=== PATIENT | male | born 1985 | race Caucasian/White ===

== ENCOUNTER 2017-02-06 13:54 | Emergency (ER) | payer MEDICAID, OTHER ==
[2017-02-06 14:24] VITALS: BP 140/90
--- NOTE | 2017-02-06 14:34 | EDM.PDOC ---
ED HPI GENERAL MEDICAL PROBLEM - General Chief Complaint: Upper Extremity Injury/Pain Stated Complaint: RIGHT WRIST INJURY Time Seen by Provider: 02/06/17 14:31 Source of Information: Reports: Patient History Limitations: Reports: No Limitations - History of Present Illness INITIAL COMMENTS - FREE TEXT/NARRATIVE: 31-year-old male arrives in the ED for evaluation of right wrist injury. This occurred when he was jumping off playground equipment and landed wrong falling on outstretched right hand. He said previous trauma to the right forearm and hand from a crush injury and has had numerous tendon and muscle transplants. He can nearly make a full fist but pain is primarily at the distal radius. He is right hand dominant. No open wounds are evident. No other injuries occurred. Onset: Today Onset Date: 02/06/17 Onset Time: 14:00 Duration: Minutes: Location: Reports: Upper Extremity, Right (Right wrist.) Quality: Reports: Ache, Throbbing Severity: Moderate Improves with: Reports: None Worsens with: Reports: Movement Context: Reports: Activity. 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) Right Wrist Pain Score (Numeric/FACES): 6 - Related Data Allergies Allergy/AdvReac Type Severity Reaction Status Date / Time hydromorphone Allergy Respiratory Verified 02/06/17 14:24 Distress Home Meds: Home Meds Cholecalciferol (Vitamin D3) [Vitamin D] 5,000 unit PO DAILY 04/06/15 [History] atorvaSTATin [Lipitor] 20 mg PO BEDTIME 04/06/15 [History] Past Medical History HEENT History: Reports: None Cardiovascular History: Reports: High Cholesterol Respiratory History: Reports: None Gastrointestinal History: Reports: None Genitourinary History: Reports: None Musculoskeletal History: Reports: Other (See Below) Other Musculoskeletal History: right arm crush injury Neurological History: Reports: None Psychiatric History: Reports: None Endocrine/Metabolic History: Reports: None Hematologic History: Reports: None Immunologic History: Reports: None Oncologic (Cancer) History: Reports: None Dermatologic History: Reports: None - Infectious Disease History Infectious Disease History: Reports: None - Past Surgical History Head Surgeries/Procedures: Reports: None Musculoskeletal Surgical History: Reports: Other (See Below) Other Musculoskeletal Surgeries/Procedures:: hand surgery Social & Family History - Family History Family Medical History: Noncontributory - Tobacco Use Smoking Status *Q: Never Smoker Second Hand Smoke Exposure: No - Caffeine Use Caffeine Use: Reports: None - Recreational Drug Use Recreational Drug Use: No - Living Situation & Occupation Living situation: Reports: Occupation: Employed Review of Systems - Review of Systems Review Of Systems: See Below Constitutional: Reports: No Symptoms Eyes: Reports: Foreign Body Sensation Ears: Reports: No Symptoms Nose: Reports: No Symptoms Mouth/Throat: Reports: No Symptoms Respiratory: Reports: No Symptoms Cardiovascular: Reports: No Symptoms GI/Abdominal: Reports: No Symptoms Genitourinary: Reports: No Symptoms Musculoskeletal: Reports: Other (Right hand dysfunction since crush trauma to the right hand and wrist occurred in work-related accident. Has had tendon transplants to make his thumb work better. 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 No: Lymphadenopathy (L), Lymphadenopathy (R) Respiratory/Chest: No Respiratory Distress, Lungs Clear, Normal Breath Sounds, No Accessory Muscle Use Extremities: Other (Has swelling pain localized to the distal right radius and wrist area. Can nearly make a full fist. There appears to be some mild swelling at the lateral aspect of the distal radius.) Neurological: Alert, Oriented, CN II-XII Intact, Normal Cognition, Normal Gait Psychiatric: Normal Affect, Normal Mood Skin Exam: Warm, Dry, Intact, Normal Color, No Rash Course - Vital Signs Last Recorded V/S: Last Vital Signs Temp 37.1 C 02/06/17 14:20 Pulse 99 02/06/17 14:20 Resp 18 02/06/17 14:20 BP 140/90 02/06/17 14:20 Pulse Ox 98 02/06/17 14:20 - Orders/Labs/Meds Orders: Active Orders 24 hr Category Date Time Status Wrist Comp Min 3V Rt [CR] Stat Exams 02/06/17 14:30 Taken - Radiology Interpretation Free Text/Narrative:: 31-year-old male presents the ED with an acute injury to his right upper extremity from a fall. Landed on outstretched hand with acute pain in his right wrist primarily over the distal radius. Plan 3 views of the wrist are to be done. - Re-Assessments/Exams Free Text/Narrative Re-Assessment/Exam: 02/06/17 15:21 x-rays of the right wrist do not reveal any fractures. Placed an tomi wrap. He will leave this on during the day and off at night for the next 3 days. Ice pack to the area one half hour of every 4 hours today and tomorrow. Motrin 6 mg of 6 hours needed for pain relief. Departure - Departure Time of Disposition: 15:21 Disposition: Home, Self-Care 01 Condition: Fair Clinical Impression: Sprain of right wrist Qualifiers: Encounter type: initial encounter Qualified Code(s): S63.501A - Unspecified sprain of right wrist, initial encounter - Discharge Information Referrals: PCP,None [Primary Care Provider] - Forms: ED Department Discharge Additional Instructions: Fall on outstretched hand with acute injury to the right wrist. Please do not reveal any fractures of the carpal bones which are 8 pounds within the true wrist joint or in the distal forearm bones. 4. Cyst injury has been mostly ligamentous and sprain to the joint. Expect things to worse before they get better particularly tomorrow morning may be more painful with limited range of motion. Suggest Tomi wrap on during the day and off at night for the next 3 days. Ice pack to the area one half hour out of every 4 hours today and tomorrow. Motrin 600 mg every 6 hours needed for pain relief. Follow-up if not completely back to normal in 10 days' time. - My Orders Last 24 Hours: My Active Orders 02/06/17 14:30 Wrist Comp Min 3V Rt [CR] Stat - Assessment/Plan Last 24 Hours: My Active Orders 02/06/17 14:30 Wrist Comp Min 3V Rt [CR] Stat
--- NOTE | 2017-02-07 08:41 | CR ---
Right wrist: Four views of the right wrist were obtained. Comparison: Previous right wrist study of 04/06/15. Joint spaces are maintained. No acute fracture, dislocation or other bony abnormality is seen. Impression: 1. No abnormality is identified on four-view right wrist exam. Diagnostic code #1
== END 2017-02-06 15:45 | disposition home or self-care (01) ==
LOC: JD.ED 13:54
DX: S63.501A Unspecified sprain of right wrist, initial encounter (principal); E78.00 Pure hypercholesterolemia, unspecified; Z98.890 Other specified postprocedural states; Z88.5 Allergy status to narcotic agent; W09.8XXA Fall on or from other playground equipment, initial encounter; Y92.89 Other specified places as the place of occurrence of the external cause
CPT/HCPCS: 73110-26-RT; 73110-RT; 99283

== ENCOUNTER 2017-12-27 20:30 | Emergency (ER) | payer MEDICAID, OTHER ==
[2017-12-27 20:39] VITALS: BP 131/96
[2017-12-27] MEDS ORDERED: Ibuprofen 600 MG Tab PO ONE (23:03)
--- NOTE | 2017-12-27 23:03 | EDM.PDOC ---
ED HPI GENERAL MEDICAL PROBLEM - General Chief Complaint: ENT Problem Stated Complaint: CHIPPED TOOTH PAINFUL Time Seen by Provider: 12/27/17 22:06 Source of Information: Reports: Patient History Limitations: Reports: No Limitations - History of Present Illness INITIAL COMMENTS - FREE TEXT/NARRATIVE: The patient states that he chipped tooth #11 while eating at [facility]. He states that he did not bite into anything especially hard, just a regular [place]. He states that he has dental issues that include thin enamel, and that he is in the process of getting veneers and implants. He reports his pain about a 5 out of 10. He has not taken any medication for his pain thus far [facility]. No prior similar symptoms. The patient's PCP is in [place]. Right Tooth/Teeth Pain Score (Numeric/FACES): 5 - Related Data Allergies Allergy/AdvReac Type Severity Reaction Status Date / Time hydromorphone Allergy Respiratory Verified 02/06/17 14:24 Distress Home Meds: Home Meds Cholecalciferol (Vitamin D3) [Vitamin D] 5,000 unit PO DAILY 04/06/15 [History] atorvaSTATin [Lipitor] 20 mg PO BEDTIME 04/06/15 [History] Past Medical History Cardiovascular History: Reports: High Cholesterol Musculoskeletal History: Reports: Other (See Below) (Right forearm crush injury) - Past Surgical History Musculoskeletal Surgical History: Reports: Other (See Below) (Right forearm and hand repair) Social & Family History - Family History Family Medical History: Noncontributory - Tobacco Use Smoking Status *Q: Never Smoker Second Hand Smoke Exposure: No - Caffeine Use Caffeine Use: Reports: Soda - Alcohol Use Alcohol Use History: Yes Alcohol Use Frequency: Socially - Recreational Drug Use Recreational Drug Use: No - Living Situation & Occupation Living situation: Reports: , with Spouse, with Family (4 kids) 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 ED EXAM, ENT - Physical Exam Exam: See Below Exam Limited By: No Limitations General Appearance: Alert, WD/WN, No Apparent Distress Eye Exam: Bilateral Eye: Normal Inspection Ears: Normal External Exam, Hearing Grossly Normal Nose: Normal Inspection, No Blood Mouth/Throat: Other (Tooth #11 appears to have a piece missing off the posterior aspect. No apparent gingival injury.) Course - Vital Signs Last Recorded V/S: Last Vital Signs Temp 37.0 C 12/27/17 20:35 Pulse 103 H 12/27/17 20:35 Resp 18 12/27/17 20:35 BP 131/96 H 12/27/17 20:35 Pulse Ox 98 12/27/17 20:35 - Orders/Labs/Meds Meds: Medications Discontinued Medications Generic Name Dose Route Start Last Admin Trade Name Titi PRN Reason Stop Dose Admin Ibuprofen 600 mg 12/27/17 23:03 12/27/17 23:09 Motrin PO 12/27/17 23:04 600 mg ONETIME ONE Administration - Re-Assessments/Exams Free Text/Narrative Re-Assessment/Exam: 12/27/17 23:00 The patient appears to have chipped the posterior aspect of tooth #11. I'm recommending that he purchase an [id number]-[id number] temporary dental filling, then follow-up with his dentist at the next available appointment. I do not see an indication for an antibiotic at this point. Departure - Departure Time of Disposition: 23:00 Disposition: Home, Self-Care 01 Condition: Good Clinical Impression: Chipped tooth - Discharge Information Instructions: Tooth Injuries, [id number] Referrals: PCP,Not In Area [Primary Care Provider] - Forms: ED Department Discharge Additional Instructions: You were seen in the emergency room after chipping your tooth #11. We recommend you purchase an lkec-mto-aaxtoji temporary dental filling, such as Dentemp, Temptooth, or Dentek Temparin Max. One or more of these products may be available at [facility]. If not, one or more of these should be available at a pharmacy. Take care-qxa-diychad ibuprofen, 2-3 tablets (400-600 mg) every 8 hours, with food, as needed for tooth pain. Follow-up with your dentist at the next available appointment. If any other problems, please do not hesitate to return to the ER.
== END 2017-12-27 23:12 | disposition home or self-care (01) ==
LOC: JD.ED 20:30
DX: K03.81 Cracked tooth (principal); E78.00 Pure hypercholesterolemia, unspecified; Z88.5 Allergy status to narcotic agent; Z79.899 Other long term (current) drug therapy
CPT/HCPCS: 99283; A9270

== ENCOUNTER 2018-08-04 10:47 | Emergency (ER) | payer BC, MEDICAID ==
[2018-08-04 11:01] VITALS: BP 145/89
--- NOTE | 2018-08-04 11:29 | EDM.PDOC ---
ED HPI GENERAL MEDICAL PROBLEM - General Chief Complaint: Upper Extremity Injury/Pain Stated Complaint: RT WRIST INJURY Time Seen by Provider: 08/04/18 10:57 Source of Information: Reports: Patient, RN Notes Reviewed History Limitations: Reports: No Limitations - History of Present Illness INITIAL COMMENTS - FREE TEXT/NARRATIVE: Patient is a 33 year old male who presents to the ED for the evaluation of right wrist pain s/p fall. He states that he slipped on the ice around 1 hour ago and ended up landing with his right wrist hyperflexed. He notes that he has had previous injury to this wrist that resulted in surgery. He states that he is having a hard time moving his wrist, due to pain. He would rate his pain at a 6/10. This pain does not radiate to elbow or shoulder. He denies any numbness or tingling. He has not taken any medications for this, due to the injury happening just prior to arrival. Right Wrist Pain Score (Numeric/FACES): 6 - Related Data Allergies Allergy/AdvReac Type Severity Reaction Status Date / Time hydromorphone Allergy Respiratory Verified 08/04/18 11:01 Distress Home Meds: Home Meds Cholecalciferol (Vitamin D3) [Vitamin D] 5,000 unit PO DAILY 04/06/15 [History] atorvaSTATin [Lipitor] 20 mg PO BEDTIME 04/06/15 [History] Past Medical History HEENT History: Reports: None Cardiovascular History: Reports: High Cholesterol Respiratory History: Reports: None Gastrointestinal History: Reports: GERD Genitourinary History: Reports: None Musculoskeletal History: Reports: Other (See Below) Other Musculoskeletal History: Right hand surgery for a crush injury Neurological History: Reports: None Psychiatric History: Reports: None Endocrine/Metabolic History: Reports: None Hematologic History: Reports: None Immunologic History: Reports: None Oncologic (Cancer) History: Reports: None Dermatologic History: Reports: None - Infectious Disease History Infectious Disease History: Reports: None - Past Surgical History Head Surgeries/Procedures: Reports: None Social & Family History - Family History Family Medical History: Noncontributory - Tobacco Use Smoking Status *Q: Never Smoker - Caffeine Use Caffeine Use: Reports: Soda - Recreational Drug Use Recreational Drug Use: No - Living Situation & Occupation Living situation: Reports: , with Spouse, with Family (4 kids) 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 Denies: Joint Swelling, Muscle Pain, Muscle Stiffness Skin: Reports: No Symptoms Neurological: Reports: No Symptoms Psychiatric: Reports: No Symptoms ED EXAM, GENERAL - Physical Exam Exam: See Below Free Text/Narrative:: exam limited to right upper extremity Exam Limited By: No Limitations General Appearance: Alert, WD/WN, No Apparent Distress (pt does have ice pack on right wrist) Head: Atraumatic, Normocephalic Neck: Normal Inspection, Supple, Non-Tender, Full Range of Motion Respiratory/Chest: No Respiratory Distress, Lungs Clear, Normal Breath Sounds, No Accessory Muscle Use, Chest Non-Tender Cardiovascular: Normal Peripheral Pulses, Regular Rate, Rhythm, No Murmur Extremities: Normal Inspection, Normal Capillary Refill, Limited Range of Motion (of right wrist due to pain). No: Joint Swelling, Increased Warmth, Mottled, Pallor, Redness Neurological: Alert, Oriented, Normal Cognition, Normal Reflexes, No Motor/ Sensory Deficits Psychiatric: Normal Affect, Normal Mood Skin Exam: Warm, Dry, Intact, Normal Color, No Rash Course - Vital Signs Last Recorded V/S: Last Vital Signs Temp 96.3 F 08/04/18 10:56 Pulse 96 08/04/18 10:56 Resp 16 08/04/18 10:56 BP 145/89 H 08/04/18 10:56 Pulse Ox 97 08/04/18 10:56 - Re-Assessments/Exams Free Text/Narrative Re-Assessment/Exam: 08/04/18 11:32 Pt presents to the ED for right wrist pain. Wrist x-ray has been ordered for further evaluation. 30 mg IM toradol was offered for pain relief, but pt declined. 08/04/18 11:59 X-ray did not demonstrate any acute fracture or abnormality. He was tender in the anatomical snuffbox, have recommended possibility of getting another x-ray in a week or two if his pain persists in that area. The patient understands this. Departure - Departure Time of Disposition: 12:00 Disposition: Home, Self-Care 01 Condition: Fair Clinical Impression: Right wrist sprain Qualifiers: Encounter type: initial encounter Qualified Code(s): S63.501A - Unspecified sprain of right wrist, initial encounter - Discharge Information *PRESCRIPTION DRUG MONITORING PROGRAM REVIEWED*: No *COPY OF PRESCRIPTION DRUG MONITORING REPORT IN PATIENT LOYD: No Instructions: Wrist Sprain, Adult, Wrist Sprain Rehab-SportsMed Referrals: PCP,None [Primary Care Provider] - Forms: ED Department Discharge Additional Instructions: You have been evaluated in the ED for your right wrist pain. Your x-ray demonstrated no acute fracture or abnormality. You have been provided with a wrist splint. If you are still having pain in your wrist after a week or so, please return to clinic for imaging of the wrist again for the possibility of a scaphoid fracture. Sometimes these do not show up on acute injury x-rays. Please use 600mg ibuprofen/500mg tylenol every 6 hours as needed for pain relief. Please ice the area as tolerated. Please return to ED if your symptoms should change or worsen.
--- NOTE | 2018-08-04 11:50 | CR ---
Right wrist: Four views of the right wrist were obtained. Comparison: Prior right wrist study of 02/06/17. Findings: Joint spaces within the right wrist are preserved. No fracture, dislocation or other bony abnormality is seen. Impression: 1. No abnormality is appreciated on right wrist exam. No change is appreciated from previous wrist study. Diagnostic code #1
== END 2018-08-04 12:40 | disposition home or self-care (01) ==
LOC: JD.ED 10:47
DX: S63.501A Unspecified sprain of right wrist, initial encounter (principal); E78.00 Pure hypercholesterolemia, unspecified; Z88.5 Allergy status to narcotic agent; Z79.899 Other long term (current) drug therapy; W00.0XXA Fall on same level due to ice and snow, initial encounter
CPT/HCPCS: 73110-26-RT; 73110-RT; 99282; 99283

== ENCOUNTER 2019-10-13 09:05 | Emergency (ER) | payer BC, MEDICAID, OTHER ==
[2019-10-13 09:15] VITALS: BP 141/83; PULSE 88
--- NOTE | 2019-10-13 09:32 | EDM.PDOC ---
<Rusty Coombs - Last Filed: 10/13/19 09:34> ED HPI GENERAL MEDICAL PROBLEM - General Chief Complaint: ENT Problem Stated Complaint: DENTAL COMPLAINT Time Seen by Provider: 10/13/19 09:29 - History of Present Illness INITIAL COMMENTS - FREE TEXT/NARRATIVE: 34 y/o male pt presenting today with complaint of tooth pain over his 1st left lateral incisor. He reports he had a tooth abscess that drained Saturday and Saturday, but the tooth is still causing him significant pain and preventing him from eating and sleeping. He informs us that he does have an appointment with a dentist at [facility] tomorrow in [place], but that was the soonest he was able to get in. 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 He states that the tooth causes pain posteriorly across the left side of face back towards his jaw, but he does not have pain that radiates across the right. Beyond the tooth pain he denies any other pain or issues. - Related Data Allergies Allergy/AdvReac Type Severity Reaction Status Date / Time hydromorphone Allergy Respiratory Verified 10/13/19 09:15 Distress Home Meds: Home Meds Cholecalciferol (Vitamin D3) [Vitamin D] 5,000 unit PO DAILY 04/06/15 [History] traMADol [Ultram] 50 mg PO TID 05/31/19 [History] Acetaminophen/HYDROcodone [[place] 325-5 MG] 1 - 2 tab PO Q6H #12 tablet 10/13/19 [Rx] Clindamycin HCl 300 mg PO TID #21 capsule 10/13/19 [Rx] ED ROS ENT - Review of Systems Review Of Systems: See Below Constitutional: Reports: Fatigue, Other (Troubles sleeping due to pain) HEENT: Reports: Dental Pain (Abscess tooth of 1st left lateral incisor ), Other (pain from tooth radiating posteriorly towards patient's upper jaw) GI/Abdominal: Reports: Decreased Appetite (Troubles eating due to tooth pain) ED EXAM, ENT - Physical Exam Exam: See Below Exam Limited By: No Limitations General Appearance: Alert, WD/WN, No Apparent Distress Mouth/Throat: Normal Lips, Dental Abcess (1st left lateral incisor ), Dental Pain (1st left lateral incisor ), Dental Tenderness, Gum Swelling (Hyperplasia due to loss of multiple teeth) Head: Atraumatic, Normocephalic Neurological: Alert, Oriented, Normal Cognition Psychiatric: Normal Affect, Normal Mood Course - Vital Signs Last Recorded V/S: Last Vital Signs Temp 36.8 C 10/13/19 09:12 Pulse 88 10/13/19 09:12 Resp 16 10/13/19 09:12 BP 141/83 H 10/13/19 09:12 Pulse Ox 100 10/13/19 09:12 Departure - Departure Disposition: Home, Self-Care 01 Clinical Impression: Dental infection - Discharge Information Prescriptions: Acetaminophen/HYDROcodone [[place] 325-5 MG] 1 - 2 tab PO Q6H #12 tablet Clindamycin HCl 300 mg PO TID #21 capsule Instructions: Dental Abscess Referrals: PCP,Not In Area [Primary Care Provider] - Forms: ED Department Discharge Additional Instructions: Evaluation in the emergency room today in regards to a dental abscess involving the left upper lateral incisor tooth. All the other left upper teeth have been previously removed. Tooth itself is exquisitely tender to touch. Treatment is antibiotic clindamycin 300 mg 3 times daily for the next 7 days to clear up root infection. Continue Motrin 600 mg every 6 hours or Aleve 2 tablets every 8 hours to relieve pain and inflammation. Percocet tabs 5/325 mg 1 or 2 every 4 -6 hours as necessary for pain relief. Follow-up with dentist as soon as able. Sepsis Event Note - Focused Exam Vital Signs: Vital Signs Temp Pulse Resp BP Pulse Ox 10/13/19 09:12 36.8 C 88 16 141/83 H 100 Date Exam was Performed: 10/13/19 Time Exam was Performed: 09:34 <Terrell Montero - Last Filed: 10/13/19 10:07> ED HPI GENERAL MEDICAL PROBLEM - General Source of Information: Reports: Patient History Limitations: Reports: No Limitations - History of Present Illness Onset: Gradual Onset Date: 10/09/19 Duration: Day(s):, Constant, Getting Worse Location: Reports: Face Quality: Reports: Ache, Throbbing ( constant throbbing pounding pain), Other ( Left upper dental pain) Severity: Severe Improves with: Reports: None Worsens with: Reports: None (910) Context: Reports: Other (Spontaneous occurrence.). Denies: Activity, Exercise, Lifting, Sick Contact, Trauma Associated Symptoms: Reports: Other Treatments CARETAKER RESORT: Reports: Acetaminophen, NSAIDS (Motrin) Oral/Mouth Pain Score (Numeric/FACES): 6 Past Medical History HEENT History: Reports: None Cardiovascular History: Reports: High Cholesterol Respiratory History: Reports: None Gastrointestinal History: Reports: GERD Genitourinary History: Reports: None Musculoskeletal History: Reports: Other (See Below) Other Musculoskeletal History: Right hand surgery for a crush injury Neurological History: Reports: None Psychiatric History: Reports: None Endocrine/Metabolic History: Reports: None Hematologic History: Reports: None Immunologic History: Reports: None Oncologic (Cancer) History: Reports: None Dermatologic History: Reports: None - Infectious Disease History Infectious Disease History: Reports: None - Past Surgical History Head Surgeries/Procedures: Reports: None Social & Family History - Family History Family Medical History: Noncontributory - Tobacco Use Smoking Status *Q: Never Smoker - Caffeine Use Caffeine Use: Reports: Coffee - Recreational Drug Use Recreational Drug Use: No - Living Situation & Occupation Living situation: Reports: , with Spouse, with Family (4 kids) 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 The remainder of the left upper maxillary teeth have been previously excised. He states it was an abscess and was draining most of the weekend. Pain is constant and throbbing. Touching the tooth with a tongue blade caused marked increase in pain. He does have pain rating up into his left maxillary sinus. There is no significant left hemifacial swelling at this time. Plan clindamycin 300 mg 3 times daily for the next 7 days. - Re-Assessments/Exams Free Text/Narrative Re-Assessment/Exam: 10/13/19 10:06 agree with the students assessment and documentation on this patient. The patient was assessed by me at the same time. Departure - Departure Time of Disposition: 09:30 Condition: Fair - Discharge Information *PRESCRIPTION DRUG MONITORING PROGRAM REVIEWED*: Not Applicable *COPY OF PRESCRIPTION DRUG MONITORING REPORT IN PATIENT LOYD: Not Applicable Sepsis Event Note - Evaluation Sepsis Screening Result: No Definite Risk - Focused Exam Date Exam was Performed: 10/13/19 Time Exam was Performed: 10:02
== END 2019-10-13 09:40 | disposition home or self-care (01) ==
LOC: JD.ED 09:05
DX: K04.7 Periapical abscess without sinus (principal); Z88.5 Allergy status to narcotic agent
CPT/HCPCS: 99282; 99283